=== PATIENT | male | born 1945 | race Caucasian/White ===

== ENCOUNTER → 2016-11-02 | Outpatient (CLI) | payer OTHER ==
[~2016-11-02] MED LIST: ALEVE220 M2 PO; ASPIR 8181 M1 PO; DAILY VITAMIN1 EAC8 PO; FLEXERIL10 MG PO; LAMICTAL100 MG PO; LORTAB 5-325 M1 EACH PO; MOTRIN IB200 MG PO; PREDNISONE1 MG PO; PRILOSEC20 MG PO; TRAMADOL HCL50 MG PO
== END | disposition home or self-care (01) ==
LOC: RES 12:40
DX: J98.8 Other specified respiratory disorders (principal)
CPT/HCPCS: 94060; 94726; 94729